=== PATIENT | female | born 1950 | race Asian ===

== ENCOUNTER 2017-08-28 16:44 | Emergency (ER) | payer BC ==
--- NOTE | 2017-08-28 16:58 | PDOC ---
Rapid Medical Evaluation Time Seen by Provider: 08/28/17 16:55 Medical Evaluation: Allergies Allergy/AdvReac Type Severity Reaction Status Date / Time acetaminophen Allergy Verified 12/09/12 08:49 [From Darvocet-N 100] propoxyphene napsylate Allergy Verified 12/09/12 08:49 [From Darvocet-N 100] 08/28/17 16:55 I have performed a brief in-person evaluation of this patient. The patient presents with a chief complaint of: Chest tightness w/ sob. Sent in by PMD, Dr Mcneill, to r/o ACS. H/o DM and HTN. Flew to [facility] from [place] last week (no palpitation, leg pain/swelling) Pertinent physical exam findings:Stable w/ clear chest/lungs and no edema I have ordered the following:ekg/cxr/labs The patient will proceed to the ED for further evaluation.
[2017-08-28 17:00] VITALS: BP 128/96; PULSE 84; TEMP 97.8; BMI 24.6
[2017-08-28 17:43] LABS: URINE APPEARANCE CLEAR; URINE BILIRUBIN NEGATIVE (NEGATIVE); URINE BLOOD NEGATIVE (NEGATIVE); URINE COLOR STRAW; URINE GLUCOSE (UA) NEGATIVE (NEGATIVE); URINE KETONE NEGATIVE (NEGATIVE); URINE LEUK ESTERASE NEGATIVE (NEGATIVE); URINE NITRITE NEGATIVE (NEGATIVE); URINE PROTEIN NEGATIVE (NEGATIVE); URINE UROBILINOGEN NEGATIVE mg/dL (0.2-1.0)
[2017-08-28 17:48] LABS: BASO # 0.1 #; BASO % 0.7 % (0-2.0); EOS # 0.2 #; EOS % 2.4 % (0-4.5); LYMPH # 3.3; MCH 26.2 pg (25.7-33.7); MEAN CELL VOLUME 79.4 fl (80-96); MEAN PLT VOLUME 8.6 fl (7.5-11.1); MONO # 0.7 #; NEUT # 4.7 #; NEUT % 52.2 % (42.8-82.8); PLATELET COUNT 290 K/MM3 (134-434)
[2017-08-28 18:27] LABS: ALBUMIN 4.1 g/dl (3.4-5.0); ANION GAP 10 (8-16); CALCIUM 9.6 mg/dL (8.5-10.1); CO2 26 mmol/L (21-32); CREATININE 0.8 mg/dL (0.55-1.02); GLUCOSE,RANDOM 155 mg/dL (74-106); SGOT/AST 17 U/L (15-37); SGPT/ALT 28 U/L (12-78)
[2017-08-28 18:29] LABS: ALK PHOS 105 U/L (45-117); BILIRUBIN,TOTAL 0.3 mg/dL (0.2-1.0); TOT PROT 7.9 g/dl (6.4-8.2)
[2017-08-28 18:34] LABS: CPK 61 IU/L (26-192); TROPONIN I < 0.02 ng/ml (0.00-0.05)
--- NOTE | 2017-08-28 20:06 | PDOC ---
History of Present Illness - General Chief Complaint: Chest Pain Stated Complaint: PCP SENT Time Seen by Provider: 08/28/17 16:55 - History of Present Illness Initial Comments: 08/28/17 20:00 The patient is a 66 year old female with a history of HTN, DM who presents for evaluation of chest pain from her PCP. The patient reports a 1 week history of intermittent substernal chest pressure. She states that she woke up today with the chest pressure which did not resolve prompting her to present to her PCP. The patient's PCP then sent her to the ED to evaluate for ACS. She denies fevers, chills, headache, SOB, abdominal pain, nausea, vomiting, or changes with urination or bowel movements. Past History - Past Medical History Allergies/Adverse Reactions: Allergies Allergy/AdvReac Type Severity Reaction Status Date / Time acetaminophen Allergy Verified 08/28/17 16:55 [From Darvocet-N 100] propoxyphene napsylate Allergy Verified 08/28/17 16:55 [From Darvocet-N 100] NSAIDS (Non-Steroidal AdvReac Verified 08/28/17 19:48 Anti-Inflamma Home Medications: Ambulatory Orders Ergocalciferol (Vitamin D2) [Vitamin D2] 50,000 unit PO DAILY 02/09/15 Metformin HCl [Glucophage -] 500 mg PO BID 02/09/15 Multivitamins [Multivit ([facility] Formulary)] 1 tab PO DAILY 02/09/15 Guar Gum [Benefiber] 1 each PO PRN 08/28/17 Meloxicam [Mobic] 15 mg PO PRN 08/28/17 Metoprolol Succinate [Toprol Xl -] 25 mg PO DAILY 08/28/17 [place]-3 Fatty Acids [[place]-3] 1,000 mg PO DAILY 08/28/17 Anemia: No Asthma: No Cancer: No Cardiac Disorders: No CVA: No COPD: No CHF: No Dementia: No Diabetes: Yes GI Disorders: No Disorders: No HTN: Yes Hypercholesterolemia: No Liver Disease: No Seizures: No Thyroid Disease: No - Surgical History Abdominal Surgery: Yes (DERMIOD CYST IN ABDOMEN NEAR LIVER) Appendectomy: No Cholecystectomy: No - Immunization History Immunization Up to Date: Yes - Suicide/Smoking/Psychosocial Hx Smoking Status: No Smoking History: Never smoked Have you smoked in the past 12 months: No Number of Cigarettes Smoked Daily: 0 Information on smoking cessation initiated: No Hx Alcohol Use: No Drug/Substance Use Hx: No Substance Use Type: None Hx Substance Use Treatment: No Review of Systems - Review of Systems Comments:: 08/28/17 20:02 Constitutional: No fevers, chills, fatigue, malaise HEENT: No Rhinorrhea, nasal congestion, visual changes Cardiovascular: Chest pressure. No syncope, palpitations, lightheadedness Respiratory: No Cough, SOB, Hemoptysis, Gastrointestinal: No Abdominal pain, Nausea, Vomiting, Constipation, Diarrhea, Melena Genitourinary: No Dysuria, Frequency, Urgency, Hesitancy, Hematuria, Flank pain Musculoskeletal: No Myalgia, arthralgia Skin: No rashes, bruising, pallor Neurologic: No Headache, Dizziness, Numbness, Weakness, or Tingling Psychiatric: No Hallucinations. No SI or HI *Physical Exam - Vital Signs Last Vital Signs Temp Pulse Resp BP Pulse Ox 97.8 F 84 17 128/96 100 08/28/17 16:56 08/28/17 16:56 08/28/17 16:56 08/28/17 16:56 08/28/17 16:56 - Physical Exam Comments: 08/28/17 20:03 General Appearance: Nourished. No Apparent Distress HEENT: EOMI, SERINA. No Pharyngeal Erythema, Tonsillar Exudate, Tonsillar Erythema Neck: No Cervical Lymphadenopathy Respiratory/Chest: Lungs Clear, Normal Breath Sounds. No Crackles, Rales, Rhonchi, Wheezing Cardiovascular: Regular Rhythm, Regular Rate. No Murmur, Gallops, Rubs Gastrointestinal/Abdominal: Normal Bowel Sounds, Soft. No Guarding, Rebound, Tenderness Musculoskeletal: No CVA Tenderness Extremity: Normal Capillary Refill Integumentary: Normal Color, Dry, Warm Neurologic: Fully Oriented, Alert, Normal Mood/Affect, Normal Response, Heart Score/ECG Review #1 ECG reviewed & interpreted by me at: 03:08 General ECG Interpretation: Sinus Rhythm, Normal Rate, Normal Intervals, No acute ischemic changes ED Treatment Course - LABORATORY CBC & Chemistry Diagram: 08/28/17 17:35 08/28/17 17:35 - ADDITIONAL ORDERS Additional order review: Laboratory Results 08/28/17 08/28/17 08/28/17 17:35 17:35 17:32 Sodium 138 Potassium 4.2 Chloride 102 Carbon Dioxide 26 Anion Gap 10 BUN 11 Creatinine 0.8 Creat Clearance w eGFR > 60 Random Glucose 155 H D Calcium 9.6 Total Bilirubin 0.3 D AST 17 D ALT 28 D Alkaline Phosphatase 105 Creatine Kinase 61 Troponin I < 0.02 B-Natriuretic Peptide 44.35 Total Protein 7.9 Albumin 4.1 Urine Color Urine Appearance Urine pH Ur Specific [place] Urine Protein Urine Glucose (UA) Urine Ketones Urine Blood Urine Nitrite Urine Bilirubin Urine Urobilinogen 08/28/17 17:32 Sodium Potassium Chloride Carbon Dioxide Anion Gap BUN Creatinine Creat Clearance w eGFR Random Glucose Calcium Total Bilirubin AST ALT Alkaline Phosphatase Creatine Kinase Troponin I B-Natriuretic Peptide Total Protein Albumin Urine Color Straw Urine Appearance Clear Urine pH 7.0 D Ur Specific [place] 1.004 Urine Protein Negative Urine Glucose (UA) Negative Urine Ketones Negative Urine Blood Negative Urine Nitrite Negative Urine Bilirubin Negative Urine Urobilinogen Negative 08/28/17 17:35 RBC 5.11 MCV 79.4 L MCHC 33.0 RDW 14.0 MPV 8.6 Neutrophils % 52.2 Lymphocytes % 36.5 Monocytes % 8.2 Eosinophils % 2.4 Basophils % 0.7 Medical Decision Making - Medical Decision Making 08/28/17 20:03 The patient is a 66 year old female with a history of HTN, DM who presents for evaluation of chest pain from her PCP. Differential includes but is not limited to: ACS, Musculoskeletal, pneumonia, infectious, metabolic derangement. Given the patient's intermittent symptoms throughout the week with a negative physical exam, it is likely her symptoms are musculoskeletal in nature. However we will obtain a cbc, cmp, troponin, ekg, chest plain film, and ua to evaluate for other etiologies. We will continue to monitor and reassess. 08/29/17 03:07 cbc, cmp, troponin, ua are unremarkable. EKG is unremarkable. chest plain film is unremarkable. We are comfortable discharging the patient home at this time with PCP follow up. We discussed the results and the plan with the patient who voiced understanding and is agreeable with the plan. *DC/Admit/Observation/Transfer Diagnosis at time of Disposition: Chest pain Qualifiers: Chest pain type: unspecified Qualified Code(s): R07.9 - Chest pain, unspecified - Discharge Dispostion Disposition: HOME Condition at time of disposition: Improved Admit: No - Referrals Referrals: Ernesto Freeman MD [Primary Care Provider] - - Patient Instructions Printed Discharge Instructions: DI for Atypical Chest Pain Additional Instructions: Please return to the ER if you experience concerning or worsening symptoms including worsening chest pain, difficulty breathing, fevers, or vomiting. You were seen in the ER for evaluation of chest pain. Your lab results were all normal. Your EKG was normal. Your chest x-ray was normal. Please call to schedule a follow up appointment with your primary care provider within 1 week to discuss your ER visit. - Post Discharge Activity
--- NOTE | 2017-08-28 20:14 | PDOC ---
Attending Attestation - Resident Resident Name: Salomón Silveira - ED Attending Attestation I have performed the following: I have examined & evaluated the patient, The case was reviewed & discussed with the resident, I agree w/resident's findings & plan, Exceptions are as noted - Physicial Exam PE: 08/28/17 20:17 Physical Exam General Appearance: Yes: Appropriately Dressed. No: Apparent Distress, Intoxicated HEENT: positive: EOMI, SERINA, Normal ENT Inspection, Normal Voice, TMs Normal, Pharynx Normal. negative: Pale Conjunctivae, Photophobia, Scleral Icterus (R), Scleral Icterus (L) Neck: positive: Trachea midline, Normal Thyroid, Supple. negative: Tender, Rigid, Carotid bruit, Stridor, Lymphadenopathy (R), Lymphadenopathy (L), Thyromegaly Respiratory/Chest: positive: Lungs Clear, Normal Breath Sounds. negative: Chest Tender, Respiratory Distress, Accessory Muscle Use, Labored Respiration, RES, Crackles, Rales, Rhonchi, Stridor, Wheezing, Dullness Cardiovascular: positive: Regular Rhythm, Regular Rate, S1, S2. negative: Edema , JVD, Murmur, Bradycardia, Tachycardia Vascular Pulses: Dorsalis-Pedis (R): 2+, Doralis-Pedis (L): 2+ Gastrointestinal/Abdominal: positive: Normal Bowel Sounds, Flat, Soft. negative : Tender, Organomegaly, Pulsatile Mass, Increased Bowel Sounds, Decreased BS, Distended, Guarding, Rebound, Hernia, Hepatomegaly, Spleenomegaly Lymphatic: negative: Adenopathy, Tenderness Musculoskeletal: positive: Normal Inspection. negative: CVA Tenderness, Decreased Range of Motion Extremity: positive: Normal Capillary Refill, Normal Inspection, Normal Range of Motion, Pelvis Stable. negative: Tender, Pedal Edema, Swelling, Erythema Integumentary: positive: Normal Color, Dry, Warm. negative: Cyanotic, Erythema , Jaundice, Rash Neurologic: positive: production planner scheduler II-XII NML intact, Fully Oriented, Alert, Normal Mood/ Affect, Motor Strength 5/5. negative: EOM Palsy, Facial Droop, Sensory Deficit - Medical Decision Making 08/28/17 20:17 Pt treated and released. <Donte Smith - Last Filed: 08/28/17 20:17> - HPI HPI: 08/28/17 20:18 66 y.o female with significant past medical history of DM and HTN, who was sent into the emergency room by Dr. Mcneill complaining of 1 week of intermittent chest pressure. <Sandra Lira - Last Filed: 08/28/17 20:18>
[2017-08-28 22:20] LABS: URINE LEUK ESTERASE TRACE (NEGATIVE)
--- NOTE | 2017-08-29 13:06 | EKG ---
Test Reason : Blood Pressure : / mmHG Vent. Rate : 080 BPM Atrial Rate : 080 BPM P-R Int : 126 ms QRS Dur : 082 ms QT Int : 364 ms P-R-T Axes : 036 036 020 degrees QTc Int : 419 ms NORMAL SINUS RHYTHM NORMAL ECG NO PREVIOUS ECGS AVAILABLE Confirmed by TED GILL MD ([id number]) on 08/29/2017 1:05:57 PM Referred By: Confirmed By:TED GILL MD
[2017-08-30 23:27] LABS: URINE RBC NONE SEEN /hpf (0-3)
== END 2017-08-28 20:31 | disposition home or self-care (01) ==
LOC: JER 16:44
DX: R07.9 Chest pain, unspecified (principal); I10 Essential (primary) hypertension; E11.9 Type 2 diabetes mellitus without complications; Z79.84 Long term (current) use of oral hypoglycemic drugs
CPT/HCPCS: 36415; 71010-TC; 80053; 81003; 81015; 82550; 83880; 84484; 85025; 93005; 93010; 99282-25

== ENCOUNTER 2018-02-07 04:48 | Day surgery (SDC) | payer BC, OTHER ==
[2018-02-06 14:01] VITALS: BMI 25.4
[2018-02-07] MEDS ORDERED: LIDOCAINE HCL 1%, 10 MG/ML (20ML VIAL) ONE (10:17)
[2018-02-07] MEDS ORDERED: BUPIVACAINE HCL/PF 0.25% (2.5MG/ML) 10 ML VIAL ONE (10:17)
--- NOTE | 2018-02-07 10:25 | HP ---
History & Physical Update - History History: No Change - Physical Physical: No Change - Assessment Assessment: No Change - Plan Plan: No Change (Excision mass in left flank)
--- NOTE | 2018-02-07 10:28 | HP ---
Satellite [facility] - Chief Complaint Chief Complaint: Mass in left flank for one year. History of Present Illness: Has a mass on her left flank for one year. History Source: Patient - Past Medical History Allergies/Adverse Reactions: Allergies Allergy/AdvReac Type Severity Reaction Status Date / Time propoxyphene napsylate AdvReac Intermediate DIZZINESS Verified 02/06/18 13:55 [From [facility]-N 100] Endocrine: Yes: Diabetes Mellitus - Current Medications Current Medications: Home Medications Medication Instructions Recorded Multivitamins [Multivit ([facility] 1 tab PO DAILY 02/09/15 Formulary)] metFORMIN HCL [Glucophage -] 500 mg PO BID 02/09/15 Metoprolol Succinate [Toprol Xl -] 25 mg PO DAILY 08/28/17 [place]-3 Fatty Acids [[place]-3] 1,000 mg PO HS 08/28/17 Aspirin [Aspirin EC] 81 mg PO DAILY 11/11/17 Calcium Carbonate [Calcium] 1 tab PO DAILY 11/11/17 Cholecalciferol (Vitamin D3) 2,000 iu PO DAILY 11/11/17 [Vitamin D3] Meloxicam [Mobic] 7.5 mg PO HS PRN 11/11/17 Satellite Physical Exam - Physical Examination Vital Signs: Vital Signs Period Temp Pulse Resp BP Sys/Camilo Pulse Ox Last 24 Hr 97.7 F 74 18 143/77 100 Abdomen: Other (4cm. elevated , pink , firm , mass in left flank.) Satellite Impression/Plan - Impression/Plan Impression: Mass in left flank. plan : Excision of 4cm. mass in left flank. Operative Procedure: Excision of mass in left flank. Date to be Performed: 02/07/18
[2018-02-07] MEDS ORDERED: LIDOCAINE HCL 1%, 10 MG/ML (20ML VIAL) INF ONE (10:48)
[2018-02-07] MEDS ORDERED: oxyCODONE HCL 5 MG TABLET PO PRN (11:06)
[2018-02-07] MEDS ORDERED: ONDANSETRON 4 MG/2 ML VIAL IVPUSH PRN (11:06)
--- NOTE | 2018-02-07 11:08 | OP ---
Operative Note - Note: Operative Date: 02/07/18 Pre-Operative Diagnosis: 4 cm.Mass on left flank. Operation: Excision of 4 cm. mass on left flank, with simple repair. Findings: Firm mass invoving , skin and subcutaneous tissue in left flank. Post-Operative Diagnosis: Same as Pre-op Surgeon: Remberto Holliday Anesthesiologist/PRODUCTION ENGINEER: Darin Morton Anesthesia: MAC Specimens Removed: Mass left flank. Estimated Blood Loss (mls): 5 Operative Report Dictated: Yes
[2018-02-07] MEDS ORDERED: LACTATED RINGERS SOLUTION 1,000 ML IV SCH (11:15)
--- NOTE | 2018-02-07 11:56 | OP ---
DATE OF OPERATION: 02/07/2018 PREOPERATIVE DIAGNOSIS: A 4-cm mass on the left flank, increasing in size. POSTOPERATIVE DIAGNOSIS: A 4-cm mass on the left flank, increasing in size. OPERATIVE PROCEDURE: Excision of mass on the left flank, 4 cm in diameter, with simple repair. SURGEON: Eusebio Holliday MD ANESTHESIA: Local with monitored intravenous sedation. OPERATIVE DESCRIPTION: This 67-year-old woman had a mass on the left flank which was painful, increasing in size. It was pink and firm. Patient wanted this lesion excised. Site was marked. Patient brought to the operating room. IV sedation was given. The local area was painted and draped. Timeout was called. A 4-cm elliptical incision was made around the lesion. We then deeply incised the skin away from the lesion on either side and deepened to go through the subcutaneous fat all the way to the deep fascia. The lesion was firm, spherical and extended deep to reach the subcutaneous fat. The lesion was completely excised and sent to Pathology. Hemostasis was then achieved using electrocautery. The subcutaneous tissue and fascia were then approximated with buried interrupted 3-0 Vicryl sutures to bring the skin approximation symmetrical and adequately. The skin was then approximated with continuous 4-0 Monocryl sutures in a running subcuticular fashion. Sponge count and instrument count were correct. A sterile dressing was placed. Patient tolerated the procedure well and was sent to the recovery room in satisfactory and stable condition. Damián [id number]
[2018-02-07 12:44] VITALS: TEMP 98
[2018-02-07 14:34] VITALS: BP 123/63; PULSE 75
--- NOTE | 2018-02-10 15:45 | PATH ---
Surgical Pathology Report Patient Name: CARLOS WEBER [facility]. Rec. #: [id number] /Age/Gender: 1950 (Age: 67) / F Account: [id number] Location: [facility] SURGICAL Taken: 02/07/2018 Received: 02/07/2018 Reported: 02/10/2018 Physicians: Eusebio Holliday M.D. Specimen(s) Received MASS OF LEFT ABDOMINAL WALL Clinical History Mass left abdominal wall Final Diagnosis LEFT ABDOMINAL WALL MASS, EXCISION: SEGMENT OF SKIN WITH SCHWANNOMA. Comment: The tumor is diffusely positive for S-100 (done at the [place], [place]), which supports the above diagnosis. Electronically Signed Tatiana Mejia M.D. Gross Description Received in formalin, labeled "mass from left abdominal wall" is a piece of skin tissue measuring 2 x 1 x 0.7 cm. the skin surface is smooth. Serial sections reveal a well circumscribed lesion in the dermis. The specimen is submitted in toto in three cassettes: 1-tips, 2,3- the rest of the skin. KWS/02/07/2018 sulki/02/07/2018
== END 2018-02-07 14:30 | disposition home or self-care (01) ==
LOC: JASU-SURG 04:48
PROVIDERS: ATTEND Specialist
PROC: 0JB80ZZ Excision of Abdomen Subcutaneous Tissue and Fascia, Open Approach (ICD-10-PCS; principal; 2018-02-07 09:30)
DX: D21.6 Benign neoplasm of connective and other soft tissue of trunk, unspecified (principal)
CPT/HCPCS: 82962; 88307-TC; 94760